=== PATIENT | female | born 1985 | race Caucasian/White ===

== ENCOUNTER 2016-09-08 08:06 | Emergency (ER) | payer SELFPAY ==
[2016-09-08] MEDS ORDERED: NOREPINEPHRINE 8 MG in IV NORMAL SALINE 250 ML IV PRN (08:45)
--- NOTE | 2016-09-08 08:51 | PHYS DOC ---
Adult General Chief Complaint Chief Complaint: CPR/FULL ARREST HPI HPI Patient is a 30 year old female who presents with CODE BLUE. According to EMS she called 911 and hung up police arrived and found her with bleeding from her nose and mouth and then she went unconscious in front of police. Police started CPR and EMS arrived. EMS intubated her and continued CPR and reported she had copious amounts of blood through her ET tube. She was in asystole/PEA arrest the entire time for EMS. EMS reported about 15 mins of CPR prior to arrival to the hospital. Upon arrival here she was noted with EMSs CPR device in place and moses blood in the ET tube. Per her children's grandfather she was seen yesterday at [facility] and diagnosed with influenza. Review of Systems Review of Systems Unable to obtain Current Medications Current Medications Current Medications Medications (Trade) Dose Ordered Sig/Yumiko Start Time Stop Time Status Last Admin Dose Admin Epinephrine HCl/ Sodium Chloride (Adrenalin/Iv Sodium Chloride 0.9% 250ml) 254 ml @ 3.81 mls/hr 1X ONCE 09/08/16 09:15 09/09/16 11:37 DC Iohexol (Omnipaque 300 Mg/ml) 75 ml 1X ONCE 09/08/16 09:30 09/08/16 09:31 DC Norepinephrine Bitartrate 8 mg/ Sodium Chloride 258 ml @ 1.93 mls/hr CONT PRN 09/08/16 08:45 09/09/16 11:37 DC Allergies Allergies Allergies Coded Allergies Type Severity Reaction Last Updated Verified Unable to Assess 09/08/16 No Physical Exam Physical Exam Constitutional: In acute distress, unresponsive HENT: Normocephalic, atraumatic, bilateral external ears normal, oropharynx moist, nose normal, ET tube in place with blood in the ET tube. [] Eyes: conjunctiva normal, no discharge, pupils 4 mm bilaterally and nonreactive. [] Neck: no stridor, no signs of trauma. [] Cardiovascular: CPR in progress Lungs & Thorax: Bilateral breath sounds bilaterally without any sounds over the stomach with bagging Abdomen: , soft, no masses, no pulsatile masses non-distention. [] Skin: dry, no erythema, no rash. [] Back: No signs of trauma Extremities: no clubbing, no edema. [] Neurologic: Unresponsive Current Patient Data Vital Signs Vital Signs Date Time Temp Pulse Resp B/P Pulse Ox O2 Delivery O2 Flow Rate FiO2 09/08/16 09:06 77 Ventilator Lab Values Laboratory Tests Test 09/08/16 08:13 09/08/16 08:45 09/08/16 09:04 09/08/16 09:28 Glucose (Fingerstick) 151mg/dL (70-99) H White Blood Count 2.1x10^3/uL (4.0-11.0) L Red Blood Count 4.03x10^6/uL (3.50-5.40) Hemoglobin 12.1g/dL (12.0-15.5) Hematocrit 39.0% (36.0-47.0) Mean Corpuscular Volume 97fL (79-100) Mean Corpuscular Hemoglobin 30pg (25-35) Mean Corpuscular Hemoglobin Concent 31g/dL (31-37) Red Cell Distribution Width 12.8% (11.5-14.5) Platelet Count 60x10^3/uL (140-400) L Neutrophils (%) (Auto) 13% (31-73) L Lymphocytes (%) (Auto) 74% (24-48) H Monocytes (%) (Auto) 7% (0-9) Eosinophils (%) (Auto) 6% (0-3) H Basophils (%) (Auto) 0% (0-3) Neutrophils # (Auto) 0.3x10^3uL (1.8-7.7) L Lymphocytes # (Auto) 1.6x10^3/uL (1.0-4.8) Monocytes # (Auto) 0.1x10^3/uL (0.0-1.1) Eosinophils # (Auto) 0.1x10^3/uL (0.0-0.7) Basophils # (Auto) 0.0x10^3/uL (0.0-0.2) Segmented Neutrophils % 3% (35-66) L Band Neutrophils % 4% (0-9) Lymphocytes % 77% (24-48) H Atypical Lymphocytes % (Manual) 6% (0-0) H Monocytes % 1% (0-10) Eosinophils % 6% (0-5) H Metamyelocytes % 2% (0-0) H Myelocytes % 1% (0-0) H Platelet Estimate Decreased (ADEQUATE) Giant Platelets Present Prothrombin Time 35.1SEC (11.7-14.0) H Prothrombin Time INR 3.8 (0.8-1.1) H PTT > 150SEC (24-38) *H Fibrinogen 89mg/dL (200-440) *L Sodium Level 153mmol/L (136-145) H Potassium Level 3.5mmol/L (3.5-5.1) Chloride Level 105mmol/L (98-107) Carbon Dioxide Level 13mmol/L (21-32) L Anion Gap 35 (6-14) H Blood Urea Nitrogen 18mg/dL (7-20) Creatinine 2.5mg/dL (0.6-1.0) H Estimated GFR (Cockcroft-Gault) 22.9 BUN/Creatinine Ratio 7 (6-20) Glucose Level 90mg/dL (70-99) Calcium Level 8.1mg/dL (8.5-10.1) L Total Bilirubin 0.2mg/dL (0.2-1.0) Aspartate Amino Transferase (AST) 582U/L (15-37) H Alanine Aminotransferase (ALT) 388U/L (14-59) H Alkaline Phosphatase 32U/L (46-116) L Creatine Kinase 1203U/L (26-192) H Creatine Kinase MB (Mass) 29.8ng/mL (0.0-3.6) H Creatine Kinase MB Relative Index 2.5% (0-4) Troponin I Quantitative 0.204ng/mL (0.000-0.055) AE-Xnt-F-Type Natriuretic Peptide 63920gf/mL (0-124) H Total Protein 4.3g/dL (6.4-8.2) L Albumin 2.0g/dL (3.4-5.0) L Albumin/Globulin Ratio 0.9 (1.0-1.7) L O2 Saturation 77% (92-99) L Arterial Blood pH 6.76 (7.35-7.45) *L Arterial Blood pCO2 at Patient Temp 49mmHg (35-46) H Arterial Blood pO2 at Patient Temp 65mmHg (85-108) L Arterial Blood HCO3 7mmol/L (21-28) L Arterial Blood Base Excess -29mmol/L (-3-3) L Oxyhemoglobin 76.0% Methemoglobin 0.8% (0.0-1.9) Carbon Monoxide, Quantitative 0.1% (0.0-1.9) Influenza Type A Antigen Negative (NEGATIVE) Influenza Type B Antigen Positive (NEGATIVE) Laboratory Tests 09/08/16 08:45 Laboratory Tests 09/08/16 08:45 EKG EKG EKG shows ventricular tachycardia with a rate of 135 bpm with right axis deviation, right bundle branch block, as interpreted by me. Radiology/Procedures Radiology/Procedures [address] [address] IMAGING REPORT Signed PATIENT: JUAN MIGUEL MCKINLEY ACCOUNT: [id number] : 1985 LOCATION: ER AGE: 30 SEX: F EXAM STATUS: REG ER ORD. PHYSICIAN: EVE BARRIOS MD REASON: post code PROCEDURE: PORTABLE CHEST 1V Exam performed: One view chest. History: Postcode intubation. Date of service: 09/08/16. Comparison: None available Single AP upright portable view chest findings: Endotracheal tube terminates in the mid to distal trachea. The feeding tube extends into the left upper abdomen. Cardiac silhouette is obscured due to diffuse airspace opacities scattered throughout both lungs mainly in a perihilar region in the left upper and lower lobes. There may be a left pleural effusion. Impression: Status post intubation and feeding tube placement in satisfactory position. Diffuse bilateral airspace opacities probably representing CHF or diffuse infiltrates. Correlate clinically. DICTATED and SIGNED BY: DAX HENDERSON MD DATE: 09/08/16929 CC: EVE BARRIOS MD ~ [id number] [place], [place] [id number] IMAGING REPORT Signed PATIENT: JUAN MIGUEL MCKINLEY ACCOUNT: [id number] : 1985 LOCATION: [address] [place] [address] AGE: 30 SEX: F EXAM STATUS: ADM IN ORD. PHYSICIAN: EVE BARRIOS MD REASON: post central line PROCEDURE: CHEST AP ONLY Exam performed: Single view chest. History: Central line placement. Date of service: 09/08/16. Comparison: Single view chest from earlier today at 09/08/16. Findings: Single AP supine portable view of the chest is obtained. There is interval placement of a right-sided central line, terminating below the atriocaval junction. Endotracheal tube and feeding tube remain in similar position. Significant interval increase in diffuse bilateral airspace opacities throughout both lungs with sparing of the lung apices. Impression: Placement of a right-sided central line with its tip distal to the atrial junction. No pneumothorax. Worsening airspace opacities in both lungs. DICTATED and SIGNED BY: DAX HENDERSON MD DATE: 09/08/16 1115 CC: EVE BARRIOS MD; UNKNOWN PCP NAME ~ Impressions: Cardiac arrest Course & Med Decision Making Course & Med Decision Making Pertinent Labs and Imaging studies reviewed. (See chart for details) Upon presentation the patient was unresponsive in asystole, with active chest compression being performed. She was intubated in the field by EMS. Placement of ETT was confirmed with bilateral breath sounds and co2 capnography, direct visualization, then later confirmed via chest X-ray. Physical examination demonstrated fixed and dilated pupils, unresponsiveness and gross blood in the ETT. Respiratory Therapist at bedside was suctioning blood out of the ETT and bagging the patient. 2L of normal saline was administered via rapid infuser, followed by 3 units of O negative blood. Pulses were obtained with ROSC. Hypotension ensued thereafter, therefore dopamine, levophed and epinephrine were administered and maxed out. ABG demonstrated severe metabolic acidosis and and bicarb boluses administered and bicarb drip ordered. Hospitalist, Pulmonary Critical Care Team, and Cardiology were consulted. The patient became bradycardic and again lost pulses. CPR was again commenced per ACLS guidelines. Gross blood noted via ETT again. ROSC noted for the second time with chest compressions. Patient then began having massive hemoptysis and lost pulse again. Limited cardiac ultrasound done at bedside demonstrated no cardiac activity. No further recommendations per Hospitalist, Professional Driver or Pulmonary Critical Care Team. Approximately 3 hours after presentation to the ER the patient was pronounced . Dragon Disclaimer Dragon Disclaimer This electronic medical record was generated, in whole or in part, using a voice recognition dictation system. Departure Departure Impression: Primary Impression: Cardiac arrest Disposition: 20 Condition: EVE BARRIOS MD Sep 08, 2016 08:51
--- NOTE | 2016-09-08 09:03 | EKG ---
[facility] [address] [place] [address] Test Date: 2016-09-08 Test Time: 08:39:22 Pat Name: JUAN MIGUEL MCKINLEY Department: Room: Gender: F Hourly Shift: : 1985 Requested By: EVE BARRIOS Order Number: [id number] Reading MD: Measurements Intervals [place] Rate: 135 P: -155 [place]: 136 QRS: 137 QRSD: 130 T: 26 QT: 288 QTc: 436 Interpretive Statements SUPRAVENTRICULAR TACHYCARDIA ABNORMAL RIGHT AXIS DEVIATION RIGHT BUNDLE BRANCH BLOCK RVH WITH REPOLARIZATION ABNORMALITY RI6.01 Unconfirmed report No previous ECG available for comparison
[2016-09-08] MEDS ORDERED: EPINEPHRINE VIAL 4 MG in IV NORMAL SALINE 250ML 250 ML IV ONE (09:15)
[2016-09-08 09:17] LABS: BASO % 0 % (0-3); EOS % 6 % (0-3); HEMOGLOBIN 12.1 g/dL (12.0-15.5); LYMPH # 1.6 x10^3/uL (1.0-4.8); LYMPH % 74 % (24-48); MEAN CORPUSCULAR HEMOGLOBIN 30 pg (25-35); MEAN CORPUSCULAR HGB CONC 31 g/dL (31-37); MEAN CORPUSCULAR VOLUME 97 fL (79-100); MONO % 7 % (0-9); NEUT % 13 % (31-73); PLATELET COUNT 60 x10^3/uL (140-400); RED BLOOD COUNT 4.03 x10^6/uL (3.50-5.40); RED CELL DISTRIBUTION WIDTH 12.8 % (11.5-14.5); WHITE BLOOD COUNT 2.1 x10^3/uL (4.0-11.0)
[2016-09-08 09:21] LABS: CALCIUM 8.1 mg/dL (8.5-10.1); CREATININE 2.5 mg/dL (0.6-1.0); GFR 22.9; POTASSIUM 3.5 mmol/L (3.5-5.1)
[2016-09-08 09:26] LABS: ALBUMIN/GLOBULIN RATIO 0.9 (1.0-1.7); TOTAL BILIRUBIN 0.2 mg/dL (0.2-1.0); TOTAL PROTEIN 4.3 g/dL (6.4-8.2)
[2016-09-08] MEDS ORDERED: IOHEXOL 300 MG/ML 75 ML VIAL IV ONE (09:30)
--- NOTE | 2016-09-08 09:38 | ACF ---
Admit Criteria Forms Admit Criteria Forms Admit Criteria Forms MYOCARDIAL INFARCTION Clinical Indications for Admission to Inpatient Care (Place 'X' for any and all applicable criteria): Admission is indicated for ANY ONE of the following (1)(2)(3)(4): [ ]I. Acute RI [ ]II. Contraindications and/or Inappropriate clinical situations for Observational Care in patients with Myocardial Infarction, when ANY ONE of the following is required: [ ]a) Patient with High risk of cardiac embolism (e.g, patients with previous cardiac embolism, LVEF < 40%, age >75 and patients with prosthetic valve) 18 [ ]b) Patient with Moderate risk including DM patient, CAD and patient aged 65-75 18 [ ]c) Patient with any change in cardiac biomarker especially troponin should be managed as high risk in an inpatient setting 19 [ ]d) Physician judgement irrespective of ECG and other diagnostic findings 20 [ ]III.General contraindications and/or Inappropriate clinical situations for Observational Care in patients with Myocardial Infarction, when ANY ONE of the following is required: [ ]a) Prediction of prolongation of LOS based on ANY ONE of the following may be considered as a contraindication for observational care 2, 3, 4, 5, 6, 7, 8, 9, 10, 11 [ ]i) Age > 65 yrs. [ ]ii) Patient arriving by ambulance [ ]iii) Patient with high acuity [ ]iv) Patient requiring vital sign monitoring [ ]v) Patient on IV medication [ ]b) Systolic blood pressures 180mmHg 3,12 [ ]c) Patient with altered mental status including delirium and other alteration of consciousness, (3) [ ]d) Patient whose discharge disposition will be to a jail home or rehabilitation home should not be managed in Emergency Department Observation Unit. CMS rule requires 3 days hospital stay before such placement. 3,13 [ ]e) Patient with failure to thrive due to broad array of etiologies 3 ,16,17 [ ]f) Inability to ambulate 3,14 Extended stay beyond goal length of stay may be needed for (1)(18)(20)(24)(25): [ ]a) Hemodynamic instability, persisting symptoms after intensive medical management, or recurring severe, prolonged symptoms [ ]b) Intravascular procedural complications such as acute vessel closure, stent thrombosis, stent malposition, or vessel dissection (26)(27)(28) [ ]c) Extravascular procedural complications such as retroperitoneal hematoma , pericardial effusion, or cardiac tamponade [ ]d) Entry site complications causing bleeding, hematoma or distal ischemia and requiring ongoing monitoring, surgical repair or surgical thrombectomy(29) [ ]e) Dangerous arrhythmia [ ]f) Complicated percutaneous coronary intervention (e.g., unsuccessful percutaneous coronary intervention or percutaneous coronary intervention of non- [place] vessel) [ ]g) Urgent or emergent surgery for complications of RI (e.g., ventricular rupture, valvular insufficiency) [ ]h) Surgical revascularization via coronary artery bypass graft [ ]i) Heart failure (e.g., pulmonary edema) [ ]j) Unstable pulmonary comorbidities, including COPD or pneumonia (31) [ ]k) Acute renal failure The original [employer] content created by [employer] has been revised. The portions of the content which have been revised are identified through the use of italic text or in bold, and [facility] has neither reviewed nor approved the modified material. All other unmodified content is copyright [facility] Please see references footnoted in the original [facility] edition 2016 MUNA BLAKELY Sep 08, 2016 09:38
--- NOTE | 2016-09-08 09:39 | RAD ---
Exam performed: One view chest. History: Postcode intubation. Date of service: 09/08/16. Comparison: None available Single AP upright portable view chest findings: Endotracheal tube terminates in the mid to distal trachea. The feeding tube extends into the left upper abdomen. Cardiac silhouette is obscured due to diffuse airspace opacities scattered throughout both lungs mainly in a perihilar region in the left upper and lower lobes. There may be a left pleural effusion. Impression: Status post intubation and feeding tube placement in satisfactory position. Diffuse bilateral airspace opacities probably representing CHF or diffuse infiltrates. Correlate clinically.
[2016-09-08 09:50] LABS: BASE EXCESS COOX -29 mmol/L (-3-3); CARBON MONOXIDE 0.1 % (0.0-1.9); HCO3 COOX 7 mmol/L (21-28); METHEMOGLOBIN 0.8 % (0.0-1.9); PCO2 COOX 49 mmHg (35-46); PO2 COOX 65 mmHg (85-108); SAT O2 COOX 77 % (92-99); TOTAL HEMOGLOBIN 15.9 g/dL
[2016-09-08 09:52] LABS: PH COOX 6.76 (7.35-7.45)
--- NOTE | 2016-09-08 09:52 | PDOC2 ---
CARDIAC CONSULT DATE OF CONSULT Date of Consult DATE: 09/08/16 TIME: 09:45 REASON FOR CONSULT Reason for Consult: rhiannon rivera REFERRING PHYSICIAN Referring Physician: Evans SOURCE Source: Chart review HISTORY OF PRESENT ILLNESS HISTORY OF PRESENT ILLNESS This is a 30 yo female admitted for out of hospital cardiopulmonary arrest. No family is available. Apparently pt was at [facility] urgent/ED care yesterday and was noted with FLU and was discharged based on staff. At home she was noted to have been coughing out blood. She went unresponsive and upon arrival by EMS she was noted with asystole. Estimated resuscitation of 15 minutes and this was continued on to ED with approximately additional 22 minutes of resuscitation before pulse was detected. Blood transfusion was given. Pt is currently intubated and vasopressors on board and hypotensive. Not on sedation and is currently unable to obtain any neurological reflexes with pupils fully dilated without reactivity. PAST MEDICAL HISTORY Past Medical History FLU otherwise unknown PAST SURGICAL HISTORY Past Surgical History unknown FAMILY HISTORY Family History: Family History Unknown SOCIAL HISTORY Social History unknown ALLERGIES ALLERGIES: Coded Allergies: Unable to Assess (Unverified , 09/08/16) ROS Review of System unreliable, intubated PHYSICAL EXAM General: Other (unresponsive) HEENT: Atraumatic, Other (mucouse membrane pale) Lungs: Other (intubated with coarse bases) Heart: Regular rate (sinus tach RBBB), Other (3/6 sytolic murmur to LLS border) Abdomen: Soft Extremities: Other (ashen color) Skin: No breakdown, No significant lesion, Other (ashen looking) Neuro: Other (absent reflexes. pupils fully dilated/fixed, round and nonreactive) Psych/Mental Status: Other (unresponsive) MUSCULOSKELETAL: Other (no deformities) LABS Lab: Laboratory Tests Test 09/08/16 08:45 White Blood Count 2.1x10^3/uL (4.0-11.0) Red Blood Count 4.03x10^6/uL (3.50-5.40) Hemoglobin 12.1g/dL (12.0-15.5) Hematocrit 39.0% (36.0-47.0) Mean Corpuscular Volume 97fL (79-100) Mean Corpuscular Hemoglobin 30pg (25-35) Mean Corpuscular Hemoglobin Concent 31g/dL (31-37) Red Cell Distribution Width 12.8% (11.5-14.5) Platelet Count 60x10^3/uL (140-400) Neutrophils (%) (Auto) 13% (31-73) Lymphocytes (%) (Auto) 74% (24-48) Monocytes (%) (Auto) 7% (0-9) Eosinophils (%) (Auto) 6% (0-3) Basophils (%) (Auto) 0% (0-3) Neutrophils # (Auto) 0.3x10^3uL (1.8-7.7) Lymphocytes # (Auto) 1.6x10^3/uL (1.0-4.8) Monocytes # (Auto) 0.1x10^3/uL (0.0-1.1) Eosinophils # (Auto) 0.1x10^3/uL (0.0-0.7) Basophils # (Auto) 0.0x10^3/uL (0.0-0.2) Sodium Level 153mmol/L (136-145) Potassium Level 3.5mmol/L (3.5-5.1) Chloride Level 105mmol/L (98-107) Carbon Dioxide Level 13mmol/L (21-32) Anion Gap 35 (6-14) Blood Urea Nitrogen 18mg/dL (7-20) Creatinine 2.5mg/dL (0.6-1.0) Estimated GFR (Cockcroft-Gault) 22.9 BUN/Creatinine Ratio 7 (6-20) Glucose Level 90mg/dL (70-99) Calcium Level 8.1mg/dL (8.5-10.1) Total Bilirubin 0.2mg/dL (0.2-1.0) Aspartate Amino Transf (AST/SGOT) 582U/L (15-37) Alanine Aminotransferase (ALT/SGPT) 388U/L (14-59) Alkaline Phosphatase 32U/L (46-116) Troponin I Quantitative 0.204ng/mL (0.000-0.055) IJ-Bmj-H-Type Natriuretic Peptide 83329ae/mL (0-124) Total Protein 4.3g/dL (6.4-8.2) Albumin 2.0g/dL (3.4-5.0) Albumin/Globulin Ratio 0.9 (1.0-1.7) ASSESSMENT/PLAN ASSESSMENT/PLAN Cardiopulmonary arrest/multiorgan failure: Would suspect PE/ARDS/DIC with significant hemoptysis, EKG sinus tach with RBBB. Initial rhythm asystole then PEA then sinus tach approximately 37 minutes till pulse is noted Significant anoxia, intubated, no sedation, no reflexes and pupils fully dilated/fixed unresponsive Currently on dopamine/levophed and titrate per BP response Intubated. In process for CTA. Consider palliative. FLU: noted at [facility] yesterday per staff Problems: GREGORY AGUAYO APRN Sep 08, 2016 09:52
[2016-09-08 09:57] LABS: CKMB INDEX 2.5 % (0-4); CKMB MASS 29.8 ng/mL (0.0-3.6)
[2016-09-08] MEDS ORDERED: SODIUM BICARB ADULT 8.4% 50 MEQ/50 ML DISP.SYRIN. ONE ×3 (10:00→12:00)
[2016-09-08 10:15] LABS: OBC FLU VALID
[2016-09-08] MEDS ORDERED: SODIUM BICARBONATE VIAL 150 MEQ in IV DEXTROSE 5% 1,000 ML IV SCH (10:15)
[2016-09-08 10:37] LABS: INR 3.8 (0.8-1.1); PROTHROMBIN TIME PATIENT 35.1 SEC (11.7-14.0)
[2016-09-08 11:16] LABS: % EOS 6 % (0-5)
[2016-09-08 11:17] LABS: PLT ESTIMATE DECREASED (ADEQUATE)
[2016-09-08 11:19] LABS: PARTIAL THROMBOPLASTIN TIME > 150 SEC (24-38)
[2016-09-08 11:20] LABS: FIBRINOGEN 89 mg/dL (200-440)
--- NOTE | 2016-09-08 11:21 | RAD ---
Exam performed: Single view chest. History: Central line placement. Date of service: 09/08/16. Comparison: Single view chest from earlier today at 09/08/16. Findings: Single AP supine portable view of the chest is obtained. There is interval placement of a right-sided central line, terminating below the atriocaval junction. Endotracheal tube and feeding tube remain in similar position. Significant interval increase in diffuse bilateral airspace opacities throughout both lungs with sparing of the lung apices. Impression: Placement of a right-sided central line with its tip distal to the atrial junction. No pneumothorax. Worsening airspace opacities in both lungs.
--- NOTE | 2016-09-08 11:51 | PDOC ---
Provider Note Provider Note Sagrario Sahu is 30 F presented to ER with code blue, PEA and respiratory failure, After my discussion with Dr BARRIOS, we decided to admit her in the ICU , however Pt is about to get some other imaging studies as ordered by Dr BARRIOS. I was informed by the ER staff that Pt at 11:17 am. I didn't examine the patient physically as she is in the process of getting complete work up. Please see Dr BARRIOS notes for full details. CHAU KRUEGER MD Sep 08, 2016 11:51
[2016-09-08] MEDS ORDERED: EPINEPHRINE 30 MG/30 ML VIAL. ONE (12:00)
[2016-09-08] MEDS ORDERED: DOPAMINE 400MG/250ML PREMIX BAG. IV ONE (12:00)
[2016-09-08] MEDS ORDERED: EPINEPHRINE 1 MG/10 ML DISP.SYRIN. ONE (12:00)
== END 2016-09-08 15:23 | disposition expired ==
LOC: MERGE 08:06 → EDBD 08:06 → ER 08:06 → 1 WEST ICU 09:30 → UNDOADMIN 09:30 → ER 15:23
DX: I46.9 Cardiac arrest, cause unspecified (principal)
CPT/HCPCS: 36415; 36600; 71010; 80053; 82553; 82805; 82947; 83880; 84484; 85007; 85027; 85384; 85610; 85730; 86850; 86900; 86901; 86920; 87804; 92950; 93005; 94002; 99285; J0171; J1265; P9016